=== PATIENT | female | born 1940 ===

== ENCOUNTER 2024-10-22 20:10 | Emergency (ER) | payer MEDICARE, OTHER, SELFPAY ==
[2024-10-22 20:14] VITALS: PULSE 73; RESP 18; O2SAT 98
--- NOTE | 2024-10-22 20:23 | XR_ITS ---
Examination: CT brain head without contrast. 2-D sagittal coronal reconstructions Date and time of exam:October 22, 2024, 2041 hrs. Indications: Ground-level fall today with injury to the head, head pain neck pain CTDI: vol (mGy):46.2 DLP: (mGycm):897 Technique: Multiple CT axial sections of the brain have been obtained, 5 mm slice thickness. Contrast has not been administered. 2-D sagittal, coronal reconstructions have been obtained Low dose protocols were performed. One or more of the following dose reduction techniques were used; automated exposure control, adjustment of the mA and/or KV according to patient size, use of iterative reconstruction technique. Findings: No significant ventricular enlargement. Intra-axial or extra-axial hemorrhage density is not seen. No mass effect or midline shift Basal cisterns are not remarkable. Fourth ventricle is midline. Cranial vault intact. Impression: Negative for acute hemorrhage, mass effect or midline shift
--- NOTE | 2024-10-22 20:23 | XR_ITS ---
Examination: AP chest single view Technique one AP portable semiupright chest single view Date and time: October 22, 2024, at 2026 hrs. Indications: Patient fell today, injury to the chest, chest pain Findings: Mild prominence of ventricle No pneumothorax. Pneumonia. Prominent osteopenia with advanced arthritic change glenohumeral joints Clavicles ribs appear intact Impression: No pneumothorax, pulmonary contusion or hemothorax
--- NOTE | 2024-10-22 20:23 | XR_ITS ---
Examination: CT cervical spine without contrast 2-D sagittal reconstructions 2-D coronal reconstructions 3-D reconstructions. Exam date and time:October 22, 2024, 2042 hrs. Indications: Ground-level fall today with into the neck, neck pain CTDI:vol (mGy) 12.3 DLP: (mGycm) 300 day Technique: Multiple 2 mm axial sections of the cervical spine have been obtained. The coronal and sagittal reconstructions have been obtained. 3-D reconstructions have been obtained. Low dose protocols were performed. One or more of the following dose reduction techniques were used; automated exposure control, adjustment of the mA and/or KV according to patient size, use of iterative reconstruction technique. Findings: Axial sections demonstrate intact base of the skull. C1 exhibit satisfactory relationship to the odontoid. No acute cervical vertebral body fracture seen. Alignment posterior spinous processes satisfactory. Right apical pleural thickening Acute sphenoid sinusitis Impression: No acute cervical fracture.
--- NOTE | 2024-10-22 20:23 | EKG_ITS ---
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
--- NOTE | 2024-10-22 20:24 | EDNOTE_ITS ---
ED General RME/HPI General Chief complaint: Fall Stated complaint: HEAD PAIN Time Seen by Provider: 10/22/24 20:20 Arrival date/time: 10/22/24 20:10 CC: Left forehead laceration ground-level fall HPI onset approximately 20 minutes ago EMS per 5 transport to the emergency room reporting stable vital signs and route. Patient is awake alert [place] denies any blood thinning medications. Patient has had multiple falls, and is recently moved into her son's house upon. Patient was in her own TV room , and stepped up from the sofa and fell forward. Patient denies LOC. Patient is awake alert oriented Related Data Allergies Allergy/AdvReac Type Severity Reaction Status Date / Time codeine Allergy Verified 10/22/24 20:17 Review of Systems Review of Systems Narrative Review of Systems: GEN: No fever, no chills, no weight loss EYES: No discharge, no visual changes, no pain HEENT: No ear pain, no congestion, no sore throat PULM: No shortness of breath, no cough, no congestion CV: No chest pain, no dyspnea on exertion, no palpitations GI: No nausea, no vomiting, no diarrhea, no pain, no constipation : No frequency, no urgency, no dysuria MUSC/SKEL: No joint pain, no back pain SKIN: + Laceration, no rash PSYCH: No hallucinations, no depression HEME/LYMPH: No easy bleeding or bruising tendencies NEURO: No weakness, no headache Past Medical History Social History SMOKING STATUS: Never smoker ED Exam Narrative Physical exam: [General: Not in any acute distress Head normocephalic no significant step-off hematoma induration ulceration or crepitus, there is a left forehead laceration. HEENT: Eyes pupils are PERRLA, LASEK surgery is evident, tracking no entrapment. Mouth pink dry membranes uvula is midline swallow symmetrical phonation is normal. No rhinorrhea otorrhea raccoon's eyes or grijalva signs all of the subsystems of HEENT are within acceptable limits Neck is supple nontender Chest equal chest rise nontender to palpation Respiratory: Clear to auscultation no wheezes crackles or rubs CV: Rate rhythm is regular no murmurs rubs or clicks Abdomen is soft nontender no masses positive bowel sounds all 4 quadrants Back: No CVA tenderness no spinous process tenderness from cervical spine thoracic and lumbar spine Skin: Intact no petechiae rash induration ulceration or crepitus Extremities: Moving all extremity against resistance cap refill less than 2 seconds neurosensory intact Neuro: Awake alert oriented x3 Glascow coma 15 no focal deficits] Course Quality Measures none Orders Category Date Time Status EKG (ED ONLY) *Do not use* NOW Care 10/22/24 20:23 Completed Set Up Suture Tray STAT Care 10/22/24 20:[address] cervical spine wo con Stat Exams 10/22/24 20:[address] head/brain wo con Stat Exams 10/22/24 20:23 Completed EKG (ED Only) Stat Exams 10/22/24 20:23 Draft XR chest 1V Stat Exams 10/22/24 20:23 Completed B-Type Natriuretic Peptide Stat Lab 10/22/24 21:23 Completed CBC Stat Lab 10/22/24 21:23 Completed Comprehensive Metabolic Panel Stat Lab 10/22/24 21:23 Completed Drug Screen,Urine Stat Lab 10/22/24 20:23 Ordered LDH (Lactate Dehydrogenase) Stat Lab 10/22/24 21:23 Completed Magnesium Stat Lab 10/22/24 21:23 Completed Partial Thromboplastin Time Stat Lab 10/22/24 21:23 Completed Prothrombin Time with INR Stat Lab 10/22/24 21:23 Completed Troponin I Stat Lab 10/22/24 21:23 Completed Urinalysis, C/S if Indicated Stat Lab 10/22/24 20:23 Ordered Lidocaine 1% 20 ml [Xylocaine 1% 20 ML] Med 10/22/24 20:24 Discontinued 20 ml INFL X1 ONE Vital Signs Vital signs: Vital Signs Temperature 98.4 F 10/22/24 20:36 Pulse Rate 65 10/22/24 20:36 Respiratory Rate 20 10/22/24 20:36 Blood Pressure 167/65 H 10/22/24 20:36 Pulse Oximetry (%) 100 10/22/24 20:36 Oxygen Delivery Method Room Air 10/22/24 20:36 PROCEDURES: Procedure Comment Left temporal stellate laceration approximately total of 7 cm. Anesthesia 1% lidocaine without epinephrine 3 mL injected local site. Site was cleaned and probed no foreign body was found site was approximated with 6 interrupted sutures of 6-0 Ethilon with good approximation without complication patient tolerated the procedure well. Discharge Plan Plan Patient Disposition: HOME (Self Care) Problem List Clinical Impression: Fall, Laceration of scalp, Anemia Patient/Caregiver Discharge Instructions Education Materials: Anemia, Preventing Falls Moving Safely ..., ED Laceration: All Closures Additional Instructions: Follow-up with your primary care provider. If there is a recurrent falls return the emergency room for reevaluation Print Language: Indonesian Stand Alone Forms: [employer]iti Award Info., Patient Portal Info Letter PA/PATIENCE Supervising Physician PA/PATIENCE Supervising Physician: Jd HERNANDEZ Clinical Information Provided by patient and EMS Medical Records Reviewed [facility] and EMS Meds/Rx Considered, not Ordered None Labs/Rad/Tests considered, not Ordered None Chronic Illness/Social Conditions Add or document further as needed: Bone cancer EKG EKG Interpretation narrative: EKG performed at 2117 shows ventricular rate of 62 OK interval 174 QRS of 91 QTc of 427 this is sinus rhythm Lab Interpretation Lab(s) interpretation(s): CBC shows no leukocytosis anemia of 8.4 and 25.9 platelets of 183. Coags within acceptable No significant electrolyte imbalances renal impairment Troponin is negative BNP 164 albumin of 3.2 Imaging Provider imaging interpretation(s): CT head and C-spine as interpreted by me read by radiology and were negative for any acute finding. Chest x-ray as interpreted by me read by radiology as negative for any acute finding. Medication Administration(s) Medication Administration History Discontinued Medications Lidocaine HCl (Lidocaine Hcl 1% 20 Ml Vial) 20 ml INFL X1 ONE Stop: 10/22/24 20:25
[2024-10-22 20:36] VITALS: BP 167/65; PULSE 65; RESP 20; TEMP 36.9; O2SAT 100
[2024-10-22 21:34] LABS: Basophils # (Auto) 0.1 Thou/mm3 (0.0-0.2); Basophils % (Auto) 1 % (0-2.5); Eosinophils # (Auto) 0.1 Thou/mm3 (0.0-0.5); Eosinophils % (Auto) 2 % (0-10); Hematocrit 25.9 % (36.0-46.0); Immature Granulocytes Auto 0.00 Thou/mm3 (0.00-0.00); Lymphocytes # (Auto) 1.2 Thou/mm3 (1.0-4.8); Lymphocytes % (Auto) 34 % (10-50); Mean Corpuscular HGB Conc 32.4 g/dl (31.0-37.0); Mean Corpuscular Hemoglobin 35.0 pg (25.0-35.0); Mean Corpuscular Volume 108 fL (80-100); Monocytes # (Auto) 0.8 Thou/mm3 (0.0-0.8); Monocytes % (Auto) 22 % (0-12); Neutrophils # (Auto) 1.5 Thou/mm3 (1.8-7.7); Neutrophils % (Auto) 41 % (37-80); Nucleated Red Blood Cell # 0.00 Thou/mm3 (0.00-0.00); Nucleated Red Blood Cell % 0 /100 WBC (0); Platelet Count 183 Thou/mm3 (140-440); RDW Standard Deviation 64.9 fL (36.4-46.3); Red Blood Count 2.40 Miln/mm3 (4.00-5.20); White Blood Count 3.6 Thou/mm3 (3.6-11.0)
[2024-10-22 21:42] LABS: Hemoglobin 8.4 g/dL (12.0-16.0)
[2024-10-22 21:51] LABS: INR 1.1 (0.9-1.3); Partial Thromboplastin Time 23.4 Seconds (22.0-36.0); Prothrombin Time 12.3 Seconds (9.0-12.2)
[2024-10-22 21:55] LABS: B-Type Natriuretic Peptide 164 pg/mL (0-100)
[2024-10-22 21:58] LABS: Alanine Aminotransferase 11 U/L (10-49); Albumin, Serum 3.2 gm/dL (3.4-4.8); Albumin/Globulin Ratio 1.3 (1.2-2.2); Alkaline Phosphatase 59 U/L (46-116); Anion Gap 8 (7-16); Aspartate Amino Transferase 21 U/L (0-34); BUN/Creatinine Ratio 22 Ratio (12-20); Bilirubin,Total 0.4 mg/dL (0.3-1.2); Blood Urea Nitrogen 20 mg/dL (9-23); Calcium 8.7 mg/dL (8.3-10.6); Calcium (Corrected) 9.3 mg/dL (8.5-10.1); Carbon Dioxide 27.1 mMol/L (20.0-31.0); Chloride 108 mMol/L (98-107); Creatinine (Component) 0.9 mg/dL (0.6-1.3); Globulin 2.5 gm/dL (2.3-3.5); Glucose 96 mg/dL (74-106); LDH (Lactate Dehydrogenase) 206 U/L (120-246); Magnesium 1.9 mg/dL (1.6-2.6); Osmolality,Calculated 287 (275-295); Potassium 4.0 mMol/L (3.4-5.1); Sodium 143 mMol/L (136-145); Total Protein 5.7 gm/dL (5.7-8.2); Troponin I < 0.002 ng/mL (0.0-0.045); eGFR > 60 See Note
[2024-10-22 22:24] VITALS: PULSE 68; RESP 18; TEMP 36.7
== END 2024-10-22 22:24 | disposition home or self-care (01) ==
LOC: SERX 23:01
PROVIDERS: Registered Nurse General Practice; Emergency Provider Emergency Medicine
DX: S01.01XA Laceration without foreign body of scalp, initial encounter (principal); D64.9 Anemia, unspecified; R94.31 Abnormal electrocardiogram [ECG] [EKG]; R29.6 Repeated falls; W17.89XA Other fall from one level to another, initial encounter; Y93.89 Activity, other specified; Y92.008 Other place in unspecified non-institutional (private) residence as the place of occurrence of the external cause
CPT/HCPCS: 12002; 36415; 70450; 71045; 72125; 80053; 80307; 81001; 83615; 83735; 83880; 84484; 85025; 85610; 85730; 93005; 99284